=== PATIENT | male | born 1965 | race Caucasian/White ===

== ENCOUNTER → 2016-06-19 | Outpatient (CLI) | payer OTHER ==
[~2016-06-19] VITALS: Ht 180.3 cm; Wt 83.9 kg
[~2016-06-19] MED LIST: COLCHICINE0.6 M1 PO; INDOMETHACIN 2525 MG PO; MILK THISTLE140 M1 PO; MULTIVITAMINS PO; PROAIR HFA8.5 GM INH
--- NOTE | ~2016-06-19 | P ---
[facility] [place] [address] PROCEDURE REPORT Name: ERIC MENJIVAR [id number] Admission: 06/19/16 Attend Phys: Philippe Gunn Discharge: Date of : 65 Report #: [id number] THIS REPORT FOR: //name// CC: Philippe Ivy MD DATE OF SERVICE: 06/19/2016 PROCEDURE PERFORMED: Colonoscopy with biopsies. HISTORY OF PRESENT ILLNESS: The patient is a 51-year-old male who presents today for routine screening colonoscopy. No previous history of endoscopy. He denies any symptoms. No family history of colon cancer. PROCEDURE: The risks and benefits of the procedure were explained to the patient, those risks including, but not limited to bleeding, perforation, and the risk of sedation. He understood these risks and gave informed consent. Sedation was given using propofol and ketamine per anesthesia. Next, a digital rectal exam was initially performed, which was normal. Next, using a standard Evolve IPinon colonoscope, the scope was placed in the patient's anus and advanced under direct vision to the cecum. The overall prep was excellent. The cecum and ileocecal valve were normal in appearance. The ascending, transverse, descending and sigmoid colon were all normal. In the distal rectum, there was a single 4-mm sessile polyp. This was removed with cold forceps, otherwise normal. On retroflexion, no abnormalities were noted. The scope was then withdrawn and the procedure terminated. The patient tolerated the procedure well. IMPRESSION: 1. Small rectal polyp. 2. Otherwise, normal colonoscopy. RECOMMENDATIONS: 1. Await biopsy results. 2. If polyp is hyperplastic, repeat colonoscopy in 10 years; if adenomatous polyp, repeat in 5 years. Thank you for allowing me to participate in his care. By: [id number] Philippe Rojo MD /nt
--- NOTE | ~2016-06-19 | S ---
[facility] [place] [address] SURGICAL PATH RPT PROCEDURE Name: ERIC MENJIVAR Room #: REG [facility] M.R.#: [id number] Admission: 06/19/16 Date of : 65 Discharge: Report #: [id number] Path Case #: [id number] PATHOLOGY REPORT COLLECTION DATE: 06/19/2016 RECEIVED DATE: 06/19/2016 SUBMITTING PHYS: Dr. Philippe Rjoo OTHER PHYS: Dr. Margot Iyv SPECIMEN(S) RECEIVED: A.Rectal polyp bx * * * * * * * * * * * * FINAL DIAGNOSIS: Colonic mucosa "rectal polyp biopsy": - Tubular adenoma. - There is no evidence of high grade dysplasia or malignancy. (SHA:csd; d/t: 06/22/2016) PATHOLOGIST: Gen Penny M.D. REPORT ELECTRONICALLY SIGNED BY: Gen Penny M.D. DATE/TIME: 06/22/2016 10:24 * * * * * * * * * * * * GROSS PATHOLOGY: Received in formalin labeled "Eric Menjivar, rectal polyp biopsy," is a segment of polanco soft tissue measuring 0.3 cm in maximum dimension. The specimen is submitted entirely in cassette A1. (KAH; 06/19/2016) CLINICAL HISTORY: Pre-op diagnosis: Screening Post-op diagnosis: 1 polyp INITIAL CPT CODE(S): A; 37041 Professional services performed by [facility] at [facility] [place] [address] Technical services performed by [facility] at [address] [place] [address], [address], [place] [address]. [facility] [address] [place] [address] SURGICAL PATH RPT PROCEDURE Name: ERIC MENJIVAR Room #: REG [facility] Farmer.#: [id number] Admission: 06/19/16 Date of : 65 Discharge: Report #: [id number] Path Case #: [id number] [facility] [address] [address] PHONE: [phone] DIRECTOR: Manny Howard M.D. * * * END OF REPORT * * *
== END | disposition home or self-care (01) ==
LOC: GI 07:43
DX: Z12.11 Encounter for screening for malignant neoplasm of colon (principal); K62.1 Rectal polyp; J45.909 Unspecified asthma, uncomplicated; M10.9 Gout, unspecified; E78.1 Pure hyperglyceridemia; F17.210 Nicotine dependence, cigarettes, uncomplicated
CPT/HCPCS: 62110; 62900